=== PATIENT | female | born 1960 | race Hispanic/Latino ===

== ENCOUNTER 2020-05-07 07:40 | Day surgery (SDC) | payer BC ==
[2020-05-06 14:16] VITALS: BMI 31.8
[2020-05-07] MEDS ORDERED: Fentanyl 100 MCG/2 ML VIAL ONE (07:52)
[2020-05-07] MEDS ORDERED: Midazolam HCl 2 mg/2 ml Vial ONE (07:52)
[2020-05-07] MEDS ORDERED: Lidocaine 1% PF 5 ML VIAL ONE (07:52)
[2020-05-07 08:06] LABS: #Basophils 0.1 thou/uL (0.0-0.2); #Eosinphils 0.2 thou/uL (0.0-0.7); #Lymphocytes 1.7 thou/uL (1.20-3.40); #Monocytes 0.5 thou/uL (0.11-0.59); #Neutrophils 4.7 thou/uL (1.40-6.50); %Basophils 1.5 % (0.0-1.0); %Eosinophils 2.7 % (0.0-10.0); %Lymphocytes 23.9 % (21.0-51.0); %Monocytes 7.2 % (0.0-10.0); %Neutrophils 64.7 % (42.0-75.0); Mean Corpuscular HGB CONC 33.9 g/dL (32.0-36.0); Mean Corpuscular Hemoglobin 34.3 pg (27.0-31.0); Mean Platelet Volume 7.6 fL (7.4-10.4); Platelet Count 321 thou/uL (130-400); RBC Distribution Width 11.9 % (11.5-14.5); White Blood Cell (WBC) Count 7.3 thou/uL (4.8-10.8)
[2020-05-07 08:15] LABS: PTT 35.5 sec (22.9-36.1); Prothrombin Time 13.5 sec (12.0-14.7)
[2020-05-07 09:46] VITALS: BP 118/71; TEMP 98.1
== END 2020-05-07 11:11 | disposition home or self-care (01) ==
LOC: ULT 07:40
PROVIDERS: ATTEND Internal Medicine Gastroenterology
PROC: 0FB23ZX Excision of Left Lobe Liver, Percutaneous Approach, Diagnostic (ICD-10-PCS; principal; 2020-05-07)
DX: R94.5 Abnormal results of liver function studies (principal); M19.90 Unspecified osteoarthritis, unspecified site; G35 Multiple sclerosis; M81.0 Age-related osteoporosis without current pathological fracture; Z79.899 Other long term (current) drug therapy; Z88.1 Allergy status to other antibiotic agents
CPT/HCPCS: 36415; 47000; 76942; 85025; 85610; 85730; 88307; 88313; 88321; J2250; J3010

== ENCOUNTER 2020-11-03 14:06 | Outpatient (CLI) | payer BC ==
[2020-11-03 15:00] LABS: #Basophils 0.1 10x3/uL (0.0-0.2); #Eosinphils 0.1 10x3/uL (0.0-0.5); #Monocytes 0.5 10x3/uL (0.0-1.1); #Neutrophils 4.3 10x3/uL (1.5-8.4); %Basophils 1.2 % (0.0-2.0); %Lymphocytes 25.8 % (18.0-47.0); %Monocytes 7.9 % (0.0-10.0); %Neutrophils 62.8 % (40.0-75.0); Hemoglobin 12.8 g/dL (12.0-15.5); Mean Corpuscular HGB CONC 33.2 g/dL (32.0-36.0); Mean Corpuscular Hemoglobin 33.5 pg (27.0-33.0); Mean Platelet Volume 10.3 fl (7.4-10.4); Platelet Count 334 10x3/uL (150-450); RBC Distribution Width 12.9 % (11.5-14.5); Red Blood Cell (RBC) Count 3.82 10x6/uL (3.90-5.03); White Blood Cell (WBC) Count 6.8 10x3/uL (3.5-10.5)
[2020-11-04 11:17] LABS: SARS-CoV-2 PCR by NAA Not Detected (NotDetected)
== END 2020-11-03 14:07 | disposition home or self-care (01) ==
LOC: LABBT 14:06
PROVIDERS: ATTEND Orthopaedic Surgery Hand Surgery
DX: Z01.812 Encounter for preprocedural laboratory examination (principal); G56.22 Lesion of ulnar nerve, left upper limb; Z20.822 Contact with and (suspected) exposure to COVID-19
CPT/HCPCS: 85025; U0003; U0005

== ENCOUNTER 2020-11-06 05:54 | Day surgery (SDC) | payer BC ==
[2020-11-04 14:45] VITALS: BMI 30.2
[2020-11-06] MEDS ORDERED: Bacitracin Zinc Ointment 30 gm TUBE ONE (06:31)
[2020-11-06] MEDS ORDERED: Bupivacaine PF 0.5% 30 ML VIAL ONE (06:31)
[2020-11-06] MEDS ORDERED: Betamet Acet/Betamet Na Ph 30 MG/5 ML VIAL ONE (06:31)
[2020-11-06] MEDS ORDERED: Neomycin-Polymyxin 1 ML AMP ONE (06:31)
[2020-11-06] MEDS ORDERED: Fentanyl 100 MCG/2 ML VIAL ONE ×2 (07:06→10:00)
[2020-11-06] MEDS ORDERED: Ondansetron PF 4 MG/2 ML Vial ONE (07:26)
[2020-11-06] MEDS ORDERED: Ketorolac Tromethamine 30 MG/ML VIAL ONE ×2 (07:26→10:55)
[2020-11-06] MEDS ORDERED: ePHEDrine 50 MG/ML VIAL ONE (07:26)
[2020-11-06] MEDS ORDERED: Dexamethasone 20 MG/5 ML VIAL ONE (07:26)
[2020-11-06] MEDS ORDERED: Lidocaine 1% PF 5 ML VIAL ONE (07:26)
[2020-11-06] MEDS ORDERED: PROPOFOL 200 MG/20 ML VIAL ONE (07:26)
== END 2020-11-06 11:52 | disposition home or self-care (01) ==
LOC: SDC 05:54
PROVIDERS: ATTEND Orthopaedic Surgery Hand Surgery
PROC: 01N40ZZ Release Ulnar Nerve, Open Approach (ICD-10-PCS; principal; 2020-11-06)
PROC: 0MT40ZZ Resection of Left Elbow Bursa and Ligament, Open Approach (ICD-10-PCS; principal; 2020-11-06)
PROC: 01N50ZZ Release Median Nerve, Open Approach (ICD-10-PCS; principal; 2020-11-06)
DX: M70.22 Olecranon bursitis, left elbow (principal); G56.02 Carpal tunnel syndrome, left upper limb; G56.22 Lesion of ulnar nerve, left upper limb; Z88.1 Allergy status to other antibiotic agents; Z79.899 Other long term (current) drug therapy; Z98.51 Tubal ligation status; Z98.890 Other specified postprocedural states
CPT/HCPCS: 88304; J0690; J0702; J1100; J1885; J2405; J2704; J3010; J3490; S0020

== ENCOUNTER 2022-07-06 12:32 | Outpatient (CLI) | payer BC | END 2022-07-06 12:33 | disposition home or self-care (01) | LOC: SCSCT 12:32 | PROVIDERS: ATTEND Neurological Surgery | DX: I62.03 Nontraumatic chronic subdural hemorrhage (principal) | CPT/HCPCS: 70450 ==

== ENCOUNTER 2024-05-02 12:52 | Outpatient (CLI) | payer BC | END 2024-05-02 12:53 | disposition home or self-care (01) | LOC: SCSMRI 12:52 | PROVIDERS: ATTEND Student in an Organized Health Care Education/Training Program | DX: K76.89 Other specified diseases of liver (principal) | CPT/HCPCS: 74183 ==